=== PATIENT | male | born 1960 | race Caucasian/White ===

== ENCOUNTER 2023-12-08 06:32 | Observation (INO) ==
[~2023-12-08 06:32] MED LIST: Buffered Lidocaine 1% SYRIN 1 ml INTRADERM ONE; Lactated Ringers 1000 ml BAG 1,000 ML IV SCH; Metoclopramide 5 MG/ML VIAL (10 mg) IV PRN; NS 0.45% 1000 ml BAG 1,000 ML IV SCH; Naloxone 0.4 mg VIAL 0.4 mg/ml 1 ml VIAL IV PRN; Ondansetron 4 mg VIAL 2 MG/ML 2 ml VIAL IV PRN; fentaNYL 100 mcg/2 ml 50 MCG/ML VIAL IV PRN
[2023-12-08] MEDS ORDERED: Tranexamic Acid 1 GM/100ML BAG 2,000 MG/200 ML BAG IV ONE (06:54)
[2023-12-08] MEDS ORDERED: ceFAZolin 2 GM PREMIX 2 GM/50 ML BAG ONE (06:54)
[2023-12-08] MEDS ORDERED: Vancomycin 1,000 MG VIAL ONE (07:05)
[2023-12-08 07:06] LABS: Rapid COVID-19 Molecular Undetected (Undetected)
[2023-12-08] MEDS ORDERED: Midazolam 2 mg/2 ml VIAL 1 mg/ml 2 ml VIAL (2 mg) ONE (08:00)
[2023-12-08] MEDS ORDERED: ROPIVACAINE 5 MG/ML 30 ML BTL (0.5%) ONE (08:00)
[2023-12-08] MEDS: Acetaminophen IV 1 GM/100ML 1,000 MG/100 ML BAG IV ONE (11:06)
[2023-12-08] MEDS: Lactated Ringers 1000 ml BAG 1,000 ML IV SCH ×2 (11:06→14:37)
[2023-12-08] MEDS: Scopolamine 1 mg/72hr PATCH TRANSDERM ONE (11:06)
[2023-12-08] MEDS: Buffered Lidocaine 1% SYRIN 1 ml INTRADERM ONE (11:06)
[2023-12-08] MEDS ORDERED: Ondansetron 4 mg VIAL 2 MG/ML 2 ml VIAL IV PRN (13:09)
[2023-12-08] MEDS ORDERED: Morphine 2 MG/ML SYRINGE IV PRN (13:09)
[2023-12-08] MEDS ORDERED: Lactulose 30 ml UDC PO PRN (13:09)
[2023-12-08] MEDS ORDERED: Ondansetron ODT 4 mg TAB 4 MG TAB PO PRN (13:09)
[2023-12-08] MEDS ORDERED: Magnesium Hydroxide LIQ 30 ML UDC PO PRN (13:09)
[2023-12-08] MEDS ORDERED: Calcium Carb (TUMS) 500 mg CHEW TAB PO PRN (13:09)
[2023-12-08] MEDS: ceFAZolin 2 GM in NS PREMIX 2 GM/100 ML BAG IVPB SCH ×2 (13:45→21:32)
[2023-12-08] MEDS: Multivitamins/Minerals TAB PO SCH (21:22)
[2023-12-08] MEDS: Magnesium Hydroxide LIQ 30 ML UDC PO SCH (22:32)
[2023-12-09 06:07] LABS: Hematocrit 36.2 % (38-53); Hemoglobin 12.4 g/dL (13.2-16.3); Mean Platelet Volume 7.1 fL (7.5-11.2); Platelet Count 232 10^3/uL (150-450)
[2023-12-09 06:26] LABS: Calcium 8.5 mg/dL (8.6-10.3); Creatinine, Serum 0.95 mg/dL (0.67-1.17); Potassium 3.9 mmol/L (3.5-5.0); eGFR CKD-EPI 90.5 (>60)
[2023-12-09] MEDS: Vitamin THERAPEUTIC TAB PO SCH (08:13)
[2023-12-09 11:44] VITALS: BP 147/83
== END 2023-12-09 13:05 | disposition home or self-care (01) ==
LOC: SSU 06:32 → OR 06:32
PROVIDERS: ADMIT Orthopaedic Surgery; ATTEND Orthopaedic Surgery